=== PATIENT | male | born 2000 | race Two or more races ===

== ENCOUNTER 2023-06-29 18:43 | Emergency (ER) | payer MEDICAID, OTHER ==
[~2023-06-29] VITALS: Ht 177.8 cm; Wt 115.0 kg
[2023-06-29 22:51] VITALS: BP 145/91; PULSE 110; RESP 18; TEMP 98.5; O2SAT 95
[2023-06-29] MEDS ORDERED: CEPH500C PO (22:55)
[2023-06-29] MEDS ORDERED: MUPI2OIN2 EX (22:55)
[2023-06-29] MEDS ORDERED: CYCL-611 PO (22:55)
[2023-06-29] MEDS ORDERED: IBUP1TAB5 PO (22:55)
== END 2023-06-30 04:17 | disposition home or self-care (01) ==
LOC: EDBD 18:43 → ER 18:43
DX: S83.92XA Sprain of unspecified site of left knee, initial encounter (principal); S13.9XXA Sprain of joints and ligaments of unspecified parts of neck, initial encounter; S00.03XA Contusion of scalp, initial encounter; S20.212A Contusion of left front wall of thorax, initial encounter; S50.312A Abrasion of left elbow, initial encounter; K76.0 Fatty (change of) liver, not elsewhere classified; V43.52XA Car driver injured in collision with other type car in traffic accident, initial encounter; W22.10XA Striking against or struck by unspecified automobile airbag, initial encounter; Y93.89 Activity, other specified; Y92.488 Other paved roadways as the place of occurrence of the external cause; Y99.8 Other external cause status
CPT/HCPCS: 70450; 71250; 72125; 73080; 73562; 74176